=== PATIENT | female | born 1970 | race Caucasian/White ===

== ENCOUNTER 2017-09-08 17:24 | Emergency (ER) | payer OTHER ==
[~2017-09-08] VITALS: Ht 157.5 cm; Wt 72.6 kg
[~2017-09-08 17:24] MED LIST: AMOXICILLIN 50500 MG PO; ANAPROX DS550 MG PO; APAP W/CODEINE1 TA2 PO; FLEXERIL PO; HORMONE PILL; HYDROCODONE-AP1 EAC6 PO; HYDROCODONE-APA1 TA1 PO; IBUPROFEN 800800 M1 PO; LORTAB 5-325 M1 EACH PO; NAPROSYN500 MG PO; NORCO 5-325 TA1 EACH PO; OMEPRAZOLE20 M1 PO; PREDNISONE50 MG PO; PROGESTERONE100 MG PO; TESSALON PERLE100 MG PO; TRAMADOL 50 MG50 MG PO; VITAMIN D1000 UNI1 PO; XANAX 0.25 MG0.25 MG PO; ZANTAC 150MG T150 M1 PO; ZOFRAN ODT4 MG PO
[2017-09-08] MEDS ORDERED: XANAX 0.25 MG0.25 MG PO (17:28)
[2017-09-08 17:55] LABS: ABSOLUTE BASOPHILS 0.1 thou/uL (0.0-0.2); ABSOLUTE EOSINOPHILS 0.5 thou/uL (0.0-0.7); ABSOLUTE LYMPHOCYTES 3.7 thou/uL (0.8-5.3); ABSOLUTE MONOCYTES 0.6 thou/uL (0.0-1.2); ABSOLUTE NEUTROPHILS 5.8 thou/uL (1.6-8.1); BASOPHILS 0.7 %; EOSINOPHILS 4.4 %; HEMATOCRIT 39.3 % (37.0-47.0); HEMOGLOBIN 13.5 gm/dL (12.0-15.0); LYMPHOCYTES 34.9 %; MCH 30.1 pg (26.0-34.0); MCHC 34.3 g/dL (28.0-37.0); MCV 87.8 fL (80.0-100.0); MONOCYTES 5.6 %; MPV 9.5 fl. (7.2-11.1); NUCLEATED RBCS 0 /100WBC; PLATELET COUNT* 235 thou/uL (150-400); POLYS 54.4 %; RBC 4.48 mil/uL (4.20-5.00); RDW-CV 12.9 % (10.5-14.5); WBC 10.7 thou/uL (4.0-11.0)
[2017-09-08 18:06] LABS: ANION GAP 8 mmol/L (7-16); BUN 15 mg/dL (7-18); CALCIUM 8.8 mg/dL (8.5-10.1); CHLORIDE 104 mmol/L (98-107); CO2 29 mmol/L (21-32); CREATININE 0.7 mg/dL (0.6-1.3); GLUCOSE 109 mg/dL (70-99); POTASSIUM 3.5 mmol/L (3.5-5.1); SODIUM 141 mmol/L (136-145)
[2017-09-08 18:17] LABS: ALBUMIN 3.7 g/dL (3.4-5.0); ALKALINE PHOSPHATASE 78 U/L (46-116); LIPASE 140 U/L (73-393); NT-PRO BRAIN NAT PEPTIDE 22 pg/mL (<300); SGOT 21 U/L (15-37); SGPT 44 U/L (30-65); TOTAL BILIRUBIN 0.4 mg/dL (<0.1-1.0); TOTAL PROTEIN 7.3 g/dL (6.4-8.2); TROPONIN-I LEVEL <0.06 ng/mL (<0.06)
[2017-09-08 18:27] VITALS: BP 142/96
--- NOTE | 2017-09-09 16:33 | EKG ---
[place] [address] ELECTROCARDIOGRAM REPORT Name: FAUSTO RAMSAY Room: [facility]#: [id number] Admission: 09/08/17 Attend Phys: Discharge: 09/08/17 Date of : 72 Report #: [id number] THIS REPORT FOR: //name// [facility] ED Test Date: 2017-09-08 Test Time: 17:28:14 Pat Name: FAUSTO RAMSAY Department: Room: Gender: F Nursing Assistants Teacher: Maria L DEL ANGEL : 1970 Requested By: Wilmar Hu Order Number: [id number] MD: Mitesh Crow Measurements Intervals [place] Rate: 88 P: 15 [place]: 160 QRS: 38 QRSD: 94 T: 52 QT: 386 QTc: 467 Interpretive Statements Sinus rhythm Compared to ECG 12/17/2016 15:01:21 No significant changes Electronically Signed On 09-09-2017 16:33:49 STATISTICAL DEVELOPER by Mitesh Crow [email or web address] <ELECTRONICALLY SIGNED> By: Antonino Crow MD, [facility] 09/09/17 1633 D: [id number] 27 Antonino Crow MD, [facility] /EPI
== END 2017-09-08 18:27 | disposition home or self-care (01) ==
LOC: M.ERS 17:24
PROVIDERS: Emergency Medicine
DX: R07.89 Other chest pain (principal); F17.210 Nicotine dependence, cigarettes, uncomplicated; Z90.49 Acquired absence of other specified parts of digestive tract; Z98.890 Other specified postprocedural states

== ENCOUNTER 2017-11-01 15:44 | Emergency (ER) | payer OTHER ==
[~2017-11-01] VITALS: Ht 157.5 cm; Wt 79.4 kg
[2017-11-01 16:14] LABS: ABSOLUTE BASOPHILS 0.1 thou/uL (0.0-0.2); ABSOLUTE EOSINOPHILS 0.6 thou/uL (0.0-0.7); ABSOLUTE LYMPHOCYTES 3.7 thou/uL (0.8-5.3); ABSOLUTE MONOCYTES 0.7 thou/uL (0.0-1.2); ABSOLUTE NEUTROPHILS 5.2 thou/uL (1.6-8.1); EOSINOPHILS 5.4 %; HEMATOCRIT 41.8 % (37.0-47.0); HEMOGLOBIN 14.3 gm/dL (12.0-15.0); MCH 29.9 pg (26.0-34.0); MCHC 34.1 g/dL (28.0-37.0); MCV 87.6 fL (80.0-100.0); MONOCYTES 7.2 %; MPV 9.9 fl. (7.2-11.1); NUCLEATED RBCS 0 /100WBC; PLATELET COUNT* 248 thou/uL (150-400); POLYS 50.4 %; RBC 4.77 mil/uL (4.20-5.00); RDW-CV 13.1 % (10.5-14.5); WBC 10.2 thou/uL (4.0-11.0)
[2017-11-01 16:14] LABS: URINE BILIRUBIN NEGATIVE (Negative); URINE BLOOD NEGATIVE (Negative); URINE CLARITY CLEAR; URINE COLOR YELLOW; URINE GLUCOSE-RANDOM NEGATIVE (Negative); URINE KETONES NEGATIVE (Negative); URINE LEUKOCYTES-REFLEX NEGATIVE (Negative); URINE NITRITE-REFLEX NEGATIVE (Negative); URINE PROTEIN NEGATIVE (Negative); URINE SPECIFIC GRAVITY >= 1.030 (1.005-1.030); URINE UROBILINOGEN 0.2 E.U./dl (0.2-1.0)
[2017-11-01 16:19] LABS: ANION GAP 6 mmol/L (7-16); BUN 13 mg/dL (7-18); CALCIUM 9.9 mg/dL (8.5-10.1); CHLORIDE 105 mmol/L (98-107); CO2 30 mmol/L (21-32); CREATININE 0.8 mg/dL (0.6-1.3); GLUCOSE 98 mg/dL (70-99); POTASSIUM 3.7 mmol/L (3.5-5.1); SODIUM 141 mmol/L (136-145)
[2017-11-01 16:26] LABS: ALBUMIN 4.1 g/dL (3.4-5.0); ALKALINE PHOSPHATASE 91 U/L (46-116); LIPASE 131 U/L (73-393); SGOT 26 U/L (15-37); SGPT 53 U/L (30-65); TOTAL BILIRUBIN 0.4 mg/dL (<0.1-1.0); TOTAL PROTEIN 7.7 g/dL (6.4-8.2); TROPONIN-I LEVEL <0.06 ng/mL (<0.06)
[2017-11-01] MEDS ORDERED: FLEXERIL PO (17:04)
[2017-11-01 17:10] VITALS: BP 153/93
--- NOTE | 2017-11-02 16:32 | EKG ---
[place] [address] ELECTROCARDIOGRAM REPORT Name: FAUSTO RAMSAY Room: [facility]#: [id number] Admission: 11/01/17 Attend Phys: Discharge: 11/01/17 Date of : 72 Report #: [id number] THIS REPORT FOR: //name// [facility] ED Test Date: 2017-11-01 Test Time: 16:12:59 Pat Name: FAUSTO RAMSAY Department: Room: Gender: F Nuclear Medicine Specialist: Maria L DEL ANGEL : 1970 Requested By: Zo Melo Order Number: [id number] MD: Joaquim Gann Measurements Intervals [place] Rate: 81 P: 2 IA: 139 QRS: 32 QRSD: 91 T: 36 QT: 390 QTc: 453 Interpretive Statements Sinus rhythm Compared to ECG 09/08/2017 17:28:14 No significant changes Electronically Signed On 11-02-2017 16:32:06 CDT by Joaquim Gann [email or web address] <ELECTRONICALLY SIGNED> By: Joaquim Gann MD, [facility] 11/02/17 1632 1612 11 Joaquim Gann MD, [facility]ACC /EPI
== END 2017-11-01 17:11 | disposition home or self-care (01) ==
LOC: M.ERS 15:44
PROVIDERS: Nurse Practitioner
DX: S00.83XA Contusion of other part of head, initial encounter (principal); F17.210 Nicotine dependence, cigarettes, uncomplicated; Z90.49 Acquired absence of other specified parts of digestive tract; Z98.890 Other specified postprocedural states; Z90.721 Acquired absence of ovaries, unilateral; Z88.8 Allergy status to other drugs, medicaments and biological substances; X58.XXXA Exposure to other specified factors, initial encounter; Y93.89 Activity, other specified; Y92.89 Other specified places as the place of occurrence of the external cause; Y99.8 Other external cause status

== ENCOUNTER → 2018-09-10 | Outpatient (CLI) | payer OTHER ==
[~2018-09-10] MED LIST changes: +BENTYL 10 MG CA10 M1
== END ==
LOC: M.RAD 16:21
DX: R07.81 Pleurodynia (principal)

== ENCOUNTER 2018-09-11 18:40 | Emergency (ER) | payer OTHER ==
[~2018-09-11] VITALS: Ht 157.5 cm; Wt 79.4 kg
[~2018-09-11 18:40] MED LIST changes: -BENTYL 10 MG CA10 M1
[2018-09-11] MEDS ORDERED: BENTYL 10 MG CA10 M1 (19:27)
[2018-09-11 20:19] LABS: ABSOLUTE BASOPHILS 0.1 thou/uL (0.0-0.2); ABSOLUTE EOSINOPHILS 0.4 thou/uL (0.0-0.7); ABSOLUTE LYMPHOCYTES 3.4 thou/uL (0.8-5.3); ABSOLUTE MONOCYTES 0.6 thou/uL (0.0-1.2); ABSOLUTE NEUTROPHILS 6.6 thou/uL (1.6-8.1); BASOPHILS 0.8 %; EOSINOPHILS 3.9 %; HEMATOCRIT 43.5 % (37.0-47.0); HEMOGLOBIN 14.9 gm/dL (12.0-15.0); LYMPHOCYTES 30.4 %; MCHC 34.1 g/dL (28.0-37.0); MCV 87.9 fL (80.0-100.0); MONOCYTES 5.5 %; MPV 9.6 fl. (7.2-11.1); NUCLEATED RBCS 0 /100WBC; PLATELET COUNT* 274 thou/uL (150-400); POLYS 59.4 %; RBC 4.95 mil/uL (4.20-5.00); RDW-CV 12.9 % (10.5-14.5); WBC 11.2 thou/uL (4.0-11.0)
[2018-09-11 20:23] LABS: URINE BILIRUBIN NEGATIVE (Negative); URINE BLOOD NEGATIVE (Negative); URINE CLARITY CLEAR; URINE COLOR YELLOW; URINE GLUCOSE-RANDOM NEGATIVE (Negative); URINE KETONES NEGATIVE (Negative); URINE LEUKOCYTES-REFLEX NEGATIVE (Negative); URINE NITRITE-REFLEX NEGATIVE (Negative); URINE PROTEIN NEGATIVE (Negative); URINE SPECIFIC GRAVITY 1.025 (1.005-1.030); URINE UROBILINOGEN 0.2 E.U./dl (0.2-1.0)
[2018-09-11 20:27] LABS: ANION GAP 8 mmol/L (7-16); BUN 11 mg/dL (7-18); CALCIUM 9.8 mg/dL (8.5-10.1); CHLORIDE 101 mmol/L (98-107); CO2 29 mmol/L (21-32); CREATININE 0.8 mg/dL (0.6-1.3); GLUCOSE 90 mg/dL (70-99); POTASSIUM 3.4 mmol/L (3.5-5.1); SODIUM 138 mmol/L (136-145)
[2018-09-11 20:28] LABS: PROTIME 10.3 Seconds (9.20-11.50)
[2018-09-11 20:35] LABS: ALBUMIN 4.2 g/dL (3.4-5.0); ALKALINE PHOSPHATASE 96 U/L (46-116); LIPASE 100 U/L (73-393); NT-PRO BRAIN NAT PEPTIDE 27 pg/mL (<300); SGOT 28 U/L (15-37); SGPT 60 U/L (30-65); TOTAL BILIRUBIN 0.6 mg/dL (<0.1-1.0); TOTAL PROTEIN 8.3 g/dL (6.4-8.2); TROPONIN-I LEVEL <0.06 ng/mL (<0.06)
[2018-09-11] MEDS ORDERED: TRAMADOL 50 MG50 MG PO (21:00)
[2018-09-11 21:09] VITALS: BP 139/97
--- NOTE | 2018-09-12 13:06 | EKG ---
[place] [address] ELECTROCARDIOGRAM REPORT Name: FAUSTO RAMSAY Room: [facility]#: [id number] Admission: 09/11/18 Attend Phys: Discharge: 09/11/18 Date of : 72 Report #: [id number] THIS REPORT FOR: //name// [facility] ED Test Date: 2018-09-11 Test Time: 19:31:24 Pat Name: FAUSTO RAMSAY Department: Room: Gender: F Instrumentation Technologist: PETRA : 1970 Requested By: Florencia Frank Order Number: [id number] MD: Adarsh Scott Measurements Intervals [place] Rate: 83 P: -1 AK: 145 QRS: 17 QRSD: 89 T: 35 QT: 393 QTc: 462 Interpretive Statements Sinus rhythm Left atrial enlargement Probable left ventricular hypertrophy Compared to ECG 11/01/2017 16:12:59 no change Electronically Signed On 09-12-2018 13:05:54 MINE MANAGER by Adarsh Scott [email or web address] <ELECTRONICALLY SIGNED> By: Adarsh Scott MD, [facility] 09/12/18 1305 30 30 Adarsh Scott MD, FACC /EPI
== END 2018-09-11 21:09 | disposition home or self-care (01) ==
LOC: M.ERS 18:40
PROVIDERS: Emergency Medicine
DX: R07.89 Other chest pain (principal); F17.210 Nicotine dependence, cigarettes, uncomplicated; Z90.49 Acquired absence of other specified parts of digestive tract; Z98.890 Other specified postprocedural states; Z90.721 Acquired absence of ovaries, unilateral; Z88.8 Allergy status to other drugs, medicaments and biological substances

== ENCOUNTER → 2018-09-24 | Outpatient (CLI) | payer OTHER ==
[~2018-09-24] MED LIST changes: +BENTYL 10 MG CA10 M1
== END ==
LOC: M.ULTRA 11:25
DX: R10.812 Left upper quadrant abdominal tenderness (principal); R20.8 Other disturbances of skin sensation

== ENCOUNTER 2018-12-25 17:37 | Emergency (ER) | payer OTHER ==
[~2018-12-25] VITALS: Ht 157.5 cm; Wt 80.3 kg
[2018-12-25 19:18] LABS: ABSOLUTE BASOPHILS 0.1 thou/uL (0.0-0.2); ABSOLUTE EOSINOPHILS 0.5 thou/uL (0.0-0.7); ABSOLUTE LYMPHOCYTES 3.1 thou/uL (0.8-5.3); ABSOLUTE MONOCYTES 0.7 thou/uL (0.0-1.2); ABSOLUTE NEUTROPHILS 5.9 thou/uL (1.6-8.1); BASOPHILS 0.6 %; EOSINOPHILS 4.9 %; HEMATOCRIT 42.1 % (37.0-47.0); HEMOGLOBIN 14.5 gm/dL (12.0-15.0); LYMPHOCYTES 30.2 %; MCHC 34.4 g/dL (28.0-37.0); MCV 87.2 fL (80.0-100.0); MONOCYTES 6.5 %; MPV 9.9 fl. (7.2-11.1); NUCLEATED RBCS 0 /100WBC; PLATELET COUNT* 246 thou/uL (150-400); POLYS 57.8 %; RBC 4.83 mil/uL (4.20-5.00); RDW-CV 12.5 % (10.5-14.5); WBC 10.2 thou/uL (4.0-11.0)
[2018-12-25 19:26] LABS: ANION GAP 9 mmol/L (7-16); BUN 10 mg/dL (7-18); CALCIUM 9.3 mg/dL (8.5-10.1); CHLORIDE 105 mmol/L (98-107); CO2 28 mmol/L (21-32); CREATININE 0.8 mg/dL (0.6-1.3); GLUCOSE 95 mg/dL (70-99); POTASSIUM 3.7 mmol/L (3.5-5.1); SODIUM 142 mmol/L (136-145)
[2018-12-25 19:36] LABS: ALBUMIN 3.9 g/dL (3.4-5.0); ALKALINE PHOSPHATASE 85 U/L (46-116); MAGNESIUM 2.1 mg/dL (1.8-2.4); SGOT 21 U/L (15-37); SGPT 50 U/L (30-65); TOTAL BILIRUBIN 0.4 mg/dL (<0.1-1.0); TOTAL PROTEIN 7.6 g/dL (6.4-8.2); TROPONIN-I LEVEL <0.06 ng/mL (<0.06)
[2018-12-25 20:43] LABS: URINE BILIRUBIN NEGATIVE (Negative); URINE BLOOD NEGATIVE (Negative); URINE CLARITY CLEAR; URINE COLOR YELLOW; URINE GLUCOSE-RANDOM NEGATIVE (Negative); URINE KETONES NEGATIVE (Negative); URINE LEUKOCYTES-REFLEX NEGATIVE (Negative); URINE NITRITE-REFLEX NEGATIVE (Negative); URINE PROTEIN NEGATIVE (Negative); URINE UROBILINOGEN 0.2 E.U./dl (0.2-1.0)
[2018-12-25 20:50] LABS: AMP/METHAMP Negative (Negative); BARBITURATES Negative (Negative); BENZODIAZEPINES Negative (Negative); COCAINE Negative (Negative); METHADONE Negative (Negative); OPIATES Negative (Negative); PCP Negative (Negative); THC Negative (Negative)
[2018-12-25 21:05] VITALS: BP 150/96
--- NOTE | 2018-12-26 11:26 | EKG ---
[place] [address] ELECTROCARDIOGRAM REPORT Name: FAUSTO RAMSAY Room: [facility]#: [id number] Admission: 12/25/18 Attend Phys: Discharge: 12/25/18 Date of : 72 Report #: [id number] THIS REPORT FOR: //name// [facility] ED Test Date: 2018-12-25 Test Time: 19:12:19 Pat Name: FAUSTO RAMSAY Department: Room: Gender: F Airworthiness Inspector: DARRELL : 1970 Requested By: Shelly Jarrett Order Number: [id number] MD: Adarsh Scott Measurements Intervals [place] Rate: 84 P: 12 NV: 170 QRS: 28 QRSD: 90 T: 38 QT: 401 QTc: 475 Interpretive Statements Sinus rhythm Compared to ECG 09/11/2018 19:31:24 no change Electronically Signed On 12-26-2018 11:26:29 CDT by Adarsh Scott [email or web address] <ELECTRONICALLY SIGNED> By: Adarsh Scott MD, [facility] 12/26/18 1126 11 11 Adarsh Scott MD, FACC /EPI
== END 2018-12-25 21:05 | disposition home or self-care (01) ==
LOC: M.ERS 17:37
PROVIDERS: Nurse Practitioner Family
DX: M79.662 Pain in left lower leg (principal); M79.604 Pain in right leg; R03.0 Elevated blood-pressure reading, without diagnosis of hypertension; G51.32 Clonic hemifacial spasm, left; F17.210 Nicotine dependence, cigarettes, uncomplicated; Z90.49 Acquired absence of other specified parts of digestive tract; Z98.890 Other specified postprocedural states; Z90.721 Acquired absence of ovaries, unilateral; Z86.718 Personal history of other venous thrombosis and embolism

== ENCOUNTER 2019-04-30 20:53 | Emergency (ER) | payer OTHER ==
[~2019-04-30] VITALS: Ht 157.5 cm; Wt 68.0 kg
[2019-04-30] MEDS ORDERED: TESSALON PERLE100 MG PO (21:27)
[2019-04-30] MEDS ORDERED: ZPAK PO (21:27)
[2019-04-30] MEDS ORDERED: PROMETHAZINE V120 ML PO (21:27)
[2019-04-30] MEDS ORDERED: PROAIR HFA8.5 GM INH (21:40)
[2019-04-30] MEDS ORDERED: MEDROLDOSEPACK PO (22:11)
[2019-04-30 22:42] VITALS: BP 128/93
== END 2019-04-30 22:48 | disposition home or self-care (01) ==
LOC: M.ERS 20:53
DX: J20.9 Acute bronchitis, unspecified (principal); F17.210 Nicotine dependence, cigarettes, uncomplicated; Z90.49 Acquired absence of other specified parts of digestive tract; Z90.721 Acquired absence of ovaries, unilateral; Z98.890 Other specified postprocedural states; Z91.048 Other nonmedicinal substance allergy status

== ENCOUNTER 2020-02-12 23:53 | Emergency (ER) | payer OTHER | END 2020-02-13 03:08 | disposition home or self-care (01) | LOC: M.ERS 23:53 | DX: R07.89 Other chest pain (principal); F17.210 Nicotine dependence, cigarettes, uncomplicated; Z91.012 Allergy to eggs; Z90.49 Acquired absence of other specified parts of digestive tract; Z98.890 Other specified postprocedural states ==

== ENCOUNTER 2020-03-16 21:35 | Emergency (ER) | payer OTHER ==
[~2020-03-16] VITALS: Ht 157.5 cm; Wt 72.6 kg
[~2020-03-16 21:35] MED LIST changes: +MEDROLDOSEPACK PO; +PROAIR HFA8.5 GM INH; +PROMETHAZINE V120 ML PO; +PROTONIX40 M1 PO; +ZPAK PO
[2020-03-16 22:02] LABS: ABSOLUTE BASOPHILS 0.1 thou/uL (0.0-0.2); ABSOLUTE EOSINOPHILS 0.6 thou/uL (0.0-0.7); ABSOLUTE LYMPHOCYTES 4.8 thou/uL (0.8-5.3); ABSOLUTE MONOCYTES 0.8 thou/uL (0.0-1.2); ABSOLUTE NEUTROPHILS 5.8 thou/uL (1.6-8.1); BASOPHILS 0.7 %; EOSINOPHILS 5.2 %; HEMOGLOBIN 14.5 gm/dL (12.0-15.0); LYMPHOCYTES 39.5 %; MCHC 35.5 g/dL (28.0-37.0); MCV 87.5 fL (80.0-100.0); MONOCYTES 6.4 %; MPV 9.5 fl. (7.2-11.1); NUCLEATED RBCS 0 /100WBC; PLATELET COUNT* 277 thou/uL (150-400); POLYS 48.2 %; RBC 4.69 mil/uL (4.20-5.00); RDW-CV 12.6 % (10.5-14.5)
[2020-03-16 22:12] LABS: CALCIUM 9.3 mg/dL (8.5-10.1); CREATININE 0.9 mg/dL (0.6-1.3); POTASSIUM 3.1 mmol/L (3.5-5.1)
[2020-03-16 22:17] LABS: TOTAL BILIRUBIN 0.4 mg/dL (<0.1-1.0); TOTAL PROTEIN 7.7 g/dL (6.4-8.2)
[2020-03-16] MEDS ORDERED: OMEPRAZOLE 20 M20 M1 PO (23:13)
[2020-03-16] MEDS ORDERED: CARAFATE 1 GM TA1 GM PO (23:13)
[2020-03-16] MEDS ORDERED: CYCLOBENZAPRINE5 MG PO (23:22)
[2020-03-16] MEDS ORDERED: MEDROLDOSEPACK PO (23:22)
[2020-03-17 00:24] VITALS: BP 126/85
--- NOTE | 2020-03-17 17:23 | EKG ---
[place] [address] ELECTROCARDIOGRAM REPORT Name: FAUSTO RAMSAY Room: [facility]#: [id number] Admission: 03/16/20 Attend Phys: Discharge: 03/17/20 Date of : 72 Date of Service: 03/16/202139 Report #: [id number] THIS REPORT FOR: //name// [facility] ED Test Date: 2020-03-16 Test Time: 21:40:35 Pat Name: FAUSTO RAMSAY Department: Room: Gender: F Pathology Technician: ROSAURA : 1970 Requested By: Eboni Culp Order Number: [id number] MD: Mohan Zurita Measurements Intervals [place] Rate: 85 P: 17 VT: 147 QRS: 49 QRSD: 94 T: 67 QT: 389 QTc: 463 Interpretive Statements Sinus rhythm Abnormal inferior Q waves Compared to ECG 02/12/2020 23:57:27 Inferior Q waves now present Q waves now present Sinus tachycardia no longer present Electronically Signed On 03-17-2020 17:22:54 CDT by Mohan Zurita [email or web address] <ELECTRONICALLY SIGNED> By: Mohan Zurita MD, [facility] 03/17/20 1722 2140 39 Mohan Zurita MD, [facility] /EPI
== END 2020-03-17 00:27 | disposition home or self-care (01) ==
LOC: M.ERS 21:35
PROVIDERS: Personal Emergency Response Attendant
DX: R07.89 Other chest pain (principal); F17.210 Nicotine dependence, cigarettes, uncomplicated; Z90.49 Acquired absence of other specified parts of digestive tract; Z98.890 Other specified postprocedural states; Z90.721 Acquired absence of ovaries, unilateral

== ENCOUNTER 2020-05-11 14:32 | Emergency (ER) | payer OTHER ==
[~2020-05-11] VITALS: Ht 157.5 cm; Wt 70.3 kg
[~2020-05-11 14:32] MED LIST changes: +CARAFATE 1 GM TA1 GM PO; +CYCLOBENZAPRINE5 MG PO; +OMEPRAZOLE 20 M20 M1 PO
[2020-05-11 16:47] LABS: URINE BILIRUBIN NEGATIVE (Negative); URINE BLOOD NEGATIVE (Negative); URINE CLARITY CLEAR; URINE COLOR YELLOW; URINE GLUCOSE-RANDOM NEGATIVE (Negative); URINE KETONES TRACE (Negative); URINE LEUKOCYTES NEGATIVE (Negative); URINE NITRITE NEGATIVE (Negative); URINE PROTEIN NEGATIVE (Negative); URINE SPECIFIC GRAVITY >= 1.030 (1.005-1.030); URINE UROBILINOGEN 0.2 E.U./dl (0.2-1.0)
[2020-05-11 16:50] LABS: ABSOLUTE BASOPHILS 0.1 thou/uL (0.0-0.2); ABSOLUTE EOSINOPHILS 0.3 thou/uL (0.0-0.7); ABSOLUTE LYMPHOCYTES 3.1 thou/uL (0.8-5.3); ABSOLUTE MONOCYTES 0.6 thou/uL (0.0-1.2); ABSOLUTE NEUTROPHILS 4.9 thou/uL (1.6-8.1); BASOPHILS 0.7 %; EOSINOPHILS 3.1 %; HEMATOCRIT 42.7 % (37.0-47.0); LYMPHOCYTES 34.9 %; MCH 30.2 pg (26.0-34.0); MCHC 35.1 g/dL (28.0-37.0); MCV 86.1 fL (80.0-100.0); MONOCYTES 6.3 %; MPV 8.8 fl. (7.2-11.1); NUCLEATED RBCS 0 /100WBC; PLATELET COUNT* 258 thou/uL (150-400); RBC 4.96 mil/uL (4.20-5.00); RDW-CV 12.8 % (10.5-14.5); WBC 8.9 thou/uL (4.0-11.0)
[2020-05-11 16:59] LABS: CALCIUM 9.3 mg/dL (8.5-10.1); CREATININE 0.8 mg/dL (0.6-1.3); POTASSIUM 3.5 mmol/L (3.5-5.1)
[2020-05-11 17:05] LABS: ALBUMIN 4.1 g/dL (3.4-5.0); TOTAL BILIRUBIN 0.7 mg/dL (<0.1-1.0); TOTAL PROTEIN 7.9 g/dL (6.4-8.2)
[2020-05-11] MEDS ORDERED: ZOFRAN ODT4 MG PO (17:40)
[2020-05-11] MEDS ORDERED: BENTYL 10 MG CA10 MG PO (17:40)
[2020-05-11 17:59] VITALS: BP 147/92
== END 2020-05-11 18:01 | disposition home or self-care (01) ==
LOC: M.ERS 14:32
PROVIDERS: Physician Assistant
DX: R11.2 Nausea with vomiting, unspecified (principal); R07.89 Other chest pain; E86.0 Dehydration; R53.1 Weakness; R19.7 Diarrhea, unspecified

== ENCOUNTER 2020-05-28 12:06 | Emergency (ER) | payer OTHER ==
[~2020-05-28] VITALS: Ht 157.5 cm; Wt 70.3 kg
[~2020-05-28 12:06] MED LIST changes: +BENTYL 10 MG CA10 MG PO
[2020-05-28] MEDS ORDERED: ORPHENADRINE C100 M2 PO (12:13)
[2020-05-28] MEDS ORDERED: MELOXICAM15 MG PO (12:14)
[2020-05-28 13:22] LABS: ABSOLUTE BASOPHILS 0.1 thou/uL (0.0-0.2); ABSOLUTE EOSINOPHILS 0.3 thou/uL (0.0-0.7); ABSOLUTE MONOCYTES 0.9 thou/uL (0.0-1.2); BASOPHILS 0.5 %; EOSINOPHILS 2.5 %; HEMATOCRIT 44.6 % (37.0-47.0); HEMOGLOBIN 15.3 gm/dL (12.0-15.0); LYMPHOCYTES 24.2 %; MCHC 34.3 g/dL (28.0-37.0); MCV 87.6 fL (80.0-100.0); MONOCYTES 7.2 %; MPV 9.1 fl. (7.2-11.1); NUCLEATED RBCS 0 /100WBC; PLATELET COUNT* 274 thou/uL (150-400); POLYS 65.6 %; RBC 5.09 mil/uL (4.20-5.00); RDW-CV 12.8 % (10.5-14.5); WBC 12.2 thou/uL (4.0-11.0)
[2020-05-28 13:30] LABS: CALCIUM 9.6 mg/dL (8.5-10.1); CREATININE 0.9 mg/dL (0.6-1.3); POTASSIUM 3.2 mmol/L (3.5-5.1)
[2020-05-28 13:34] LABS: ALBUMIN 4.3 g/dL (3.4-5.0); TOTAL BILIRUBIN 0.7 mg/dL (<0.1-1.0); TOTAL PROTEIN 8.4 g/dL (6.4-8.2)
[2020-05-28 14:08] LABS: URINE BILIRUBIN NEGATIVE (Negative); URINE BLOOD NEGATIVE (Negative); URINE CLARITY CLEAR; URINE COLOR YELLOW; URINE GLUCOSE-RANDOM NEGATIVE (Negative); URINE KETONES NEGATIVE (Negative); URINE LEUKOCYTES-REFLEX NEGATIVE (Negative); URINE NITRITE-REFLEX NEGATIVE (Negative); URINE PROTEIN NEGATIVE (Negative); URINE SPECIFIC GRAVITY <= 1.005 (1.005-1.030); URINE UROBILINOGEN 0.2 E.U./dl (0.2-1.0)
[2020-05-28 14:48] VITALS: BP 137/88
[2020-05-28] MEDS ORDERED: ONDANSETRON ODT4 MG PO (14:48)
[2020-05-28] MEDS ORDERED: VISTARIL 25 MG25 M1 PO (14:59)
--- NOTE | 2020-05-28 17:10 | EKG ---
[place] [address] ELECTROCARDIOGRAM REPORT Name: FAUSTO RAMSAY Room: [facility]#: [id number] Admission: 05/28/20 Attend Phys: Discharge: 05/28/20 Date of : 72 Date of Service: 05/28/20 1219 Report #: [id number] THIS REPORT FOR: //name// [facility] ED Test Date: 2020-05-28 Test Time: 12:19:49 Pat Name: FAUSTO RAMSAY Department: Room: Gender: F Camp Housekeeper: Marisa : 1970 Requested By: Ayleen Schmitz Order Number: [id number] MD: Joaquim Gann Measurements Intervals [place] Rate: 97 P: 20 CT: 168 QRS: 46 QRSD: 90 T: 65 QT: 368 QTc: 468 Interpretive Statements Sinus rhythm Compared to ECG 03/16/2020 21:40:35 Inferior Q waves no longer present Q waves no longer present Electronically Signed On 05-28-2020 17:10:11 CDT by Joaquim Gann [email or web address] <ELECTRONICALLY SIGNED> By: Joaquim Gann MD, FACC 05/28/20 1710 1219 1219 Joaquim Gann MD, FACC /EPI
== END 2020-05-28 14:48 | disposition home or self-care (01) ==
LOC: M.ERS 12:06
PROVIDERS: Physician Assistant
DX: R00.2 Palpitations (principal); Z20.828 Contact with and (suspected) exposure to other viral communicable diseases; F41.9 Anxiety disorder, unspecified; R11.10 Vomiting, unspecified; F17.210 Nicotine dependence, cigarettes, uncomplicated; Z98.890 Other specified postprocedural states; Z79.899 Other long term (current) drug therapy; Z90.49 Acquired absence of other specified parts of digestive tract

== ENCOUNTER 2020-08-21 09:27 | Emergency (ER) | payer OTHER ==
[~2020-08-21] VITALS: Ht 157.5 cm; Wt 72.6 kg
[~2020-08-21 09:27] MED LIST changes: +MELOXICAM15 MG PO; +ONDANSETRON ODT4 MG PO; +ORPHENADRINE C100 M2 PO; +VISTARIL 25 MG25 M1 PO
[2020-08-21 09:46] LABS: URINE BILIRUBIN NEGATIVE (Negative); URINE BLOOD NEGATIVE (Negative); URINE CLARITY CLEAR; URINE COLOR YELLOW; URINE GLUCOSE-RANDOM NEGATIVE (Negative); URINE KETONES NEGATIVE (Negative); URINE LEUKOCYTES-REFLEX NEGATIVE (Negative); URINE NITRITE-REFLEX NEGATIVE (Negative); URINE PROTEIN NEGATIVE (Negative); URINE SPECIFIC GRAVITY 1.025 (1.005-1.030); URINE UROBILINOGEN 0.2 E.U./dl (0.2-1.0)
[2020-08-21 10:04] LABS: ABSOLUTE BASOPHILS 0.1 thou/uL (0.0-0.2); ABSOLUTE EOSINOPHILS 0.6 thou/uL (0.0-0.7); ABSOLUTE LYMPHOCYTES 2.4 thou/uL (0.8-5.3); ABSOLUTE MONOCYTES 0.5 thou/uL (0.0-1.2); ABSOLUTE NEUTROPHILS 4.1 thou/uL (1.6-8.1); BASOPHILS 0.8 %; EOSINOPHILS 7.2 %; HEMATOCRIT 43.8 % (37.0-47.0); HEMOGLOBIN 15.2 gm/dL (12.0-15.0); LYMPHOCYTES 31.7 %; MCH 30.2 pg (26.0-34.0); MCHC 34.6 g/dL (28.0-37.0); MCV 87.4 fL (80.0-100.0); MONOCYTES 6.6 %; MPV 8.9 fl. (7.2-11.1); NUCLEATED RBCS 0 /100WBC; PLATELET COUNT* 254 thou/uL (150-400); POLYS 53.7 %; RBC 5.01 mil/uL (4.20-5.00); RDW-CV 12.6 % (10.5-14.5); WBC 7.6 thou/uL (4.0-11.0)
[2020-08-21 10:12] LABS: CALCIUM 9.9 mg/dL (8.5-10.1); CREATININE 0.7 mg/dL (0.6-1.3); POTASSIUM 4.2 mmol/L (3.5-5.1)
[2020-08-21 10:17] LABS: ALBUMIN 4.3 g/dL (3.4-5.0); TOTAL BILIRUBIN 0.4 mg/dL (<0.1-1.0); TOTAL PROTEIN 7.9 g/dL (6.4-8.2)
[2020-08-21 11:45] VITALS: BP 135/93
== END 2020-08-21 11:45 | disposition home or self-care (01) ==
LOC: M.ERS 09:27
PROVIDERS: Family Medicine
DX: R10.11 Right upper quadrant pain (principal); F17.210 Nicotine dependence, cigarettes, uncomplicated; Z90.49 Acquired absence of other specified parts of digestive tract; Z79.899 Other long term (current) drug therapy; Z91.048 Other nonmedicinal substance allergy status

== ENCOUNTER 2020-10-09 05:24 | Emergency (ER) | payer OTHER ==
[~2020-10-09] VITALS: Ht 157.5 cm; Wt 70.3 kg
[2020-10-09 05:57] LABS: ABSOLUTE BASOPHILS 0.1 thou/uL (0.0-0.2); ABSOLUTE EOSINOPHILS 0.4 thou/uL (0.0-0.7); ABSOLUTE LYMPHOCYTES 4.6 thou/uL (0.8-5.3); ABSOLUTE MONOCYTES 0.7 thou/uL (0.0-1.2); BASOPHILS 0.9 %; EOSINOPHILS 4.2 %; HEMATOCRIT 43.1 % (37.0-47.0); HEMOGLOBIN 14.8 gm/dL (12.0-15.0); LYMPHOCYTES 42.3 %; MCH 29.9 pg (26.0-34.0); MCHC 34.3 g/dL (28.0-37.0); MONOCYTES 6.4 %; MPV 9.4 fl. (7.2-11.1); NUCLEATED RBCS 0 /100WBC; PLATELET COUNT* 271 thou/uL (150-400); POLYS 46.2 %; RBC 4.95 mil/uL (4.20-5.00); RDW-CV 12.8 % (10.5-14.5); WBC 10.8 thou/uL (4.0-11.0)
[2020-10-09 06:03] LABS: CALCIUM 9.8 mg/dL (8.5-10.1); CREATININE 0.8 mg/dL (0.6-1.3); POTASSIUM 3.7 mmol/L (3.5-5.1)
[2020-10-09 06:08] LABS: ALBUMIN 3.9 g/dL (3.4-5.0); TOTAL BILIRUBIN 0.6 mg/dL (<0.1-1.0); TOTAL PROTEIN 7.3 g/dL (6.4-8.2)
[2020-10-09 06:24] LABS: URINE BILIRUBIN NEGATIVE (Negative); URINE BLOOD NEGATIVE (Negative); URINE CLARITY CLEAR; URINE COLOR YELLOW; URINE GLUCOSE-RANDOM NEGATIVE (Negative); URINE KETONES NEGATIVE (Negative); URINE LEUKOCYTES-REFLEX NEGATIVE (Negative); URINE NITRITE-REFLEX NEGATIVE (Negative); URINE PROTEIN NEGATIVE (Negative); URINE SPECIFIC GRAVITY >= 1.030 (1.005-1.030); URINE UROBILINOGEN 0.2 E.U./dl (0.2-1.0)
[2020-10-09 06:52] LABS: AMP/METHAMP Negative (Negative); BARBITURATES Negative (Negative); BENZODIAZEPINES Negative (Negative); COCAINE Negative (Negative); METHADONE Negative (Negative); OPIATES Negative (Negative); PCP Negative (Negative); THC Negative (Negative)
[2020-10-09 08:38] VITALS: BP 143/94
--- NOTE | 2020-10-09 12:42 | EKG ---
[place] [address] ELECTROCARDIOGRAM REPORT Name: FAUSTO RAMSAY Room: [facility]#: [id number] Admission: 10/09/20 Attend Phys: Discharge: 10/09/20 Date of : [birth year] Date of Service: 10/09/20 0529 Report #: [id number] THIS REPORT FOR: //name// [facility] ED Test Date: 2020-10-09 Test Time: 05:29:23 Pat Name: AFUSTO RAMSAY Department: Room: Gender: F International Guest Coordinator: : 1970 Requested By: Eboni Culp Order Number: [id number] MD: Mohan Zurita Measurements Intervals [place] Rate: 98 P: 54 MD: 162 QRS: 39 QRSD: 91 T: 48 QT: 377 QTc: 482 Interpretive Statements Sinus rhythm Probable left atrial enlargement Borderline prolonged QT interval Compared to ECG 05/28/2020 12:19:49 No significant changes Electronically Signed On 10-09-2020 12:41:54 SOLAR ENERGY ENGINEER by Mohan Zurita [email or web address] <ELECTRONICALLY SIGNED> By: Mohan Zurita MD, [facility] 10/09/20 1241 0529 0529 Mohan Zurita MD, [facility] /EPI
== END 2020-10-09 08:38 | disposition home or self-care (01) ==
LOC: M.ERS 05:24
PROVIDERS: Personal Emergency Response Attendant
DX: R07.89 Other chest pain (principal); F17.210 Nicotine dependence, cigarettes, uncomplicated; Z90.49 Acquired absence of other specified parts of digestive tract; Z98.890 Other specified postprocedural states

== ENCOUNTER 2021-01-29 12:27 | Emergency (ER) | payer OTHER ==
[~2021-01-29] VITALS: Ht 157.5 cm; Wt 70.3 kg
[2021-01-29] MEDS ORDERED: ZYRTEC10 M5 PO (12:39)
[2021-01-29 14:32] LABS: ABSOLUTE BASOPHILS 0.1 thou/uL (0.0-0.2); ABSOLUTE EOSINOPHILS 0.4 thou/uL (0.0-0.7); ABSOLUTE LYMPHOCYTES 2.6 thou/uL (0.8-5.3); ABSOLUTE MONOCYTES 0.6 thou/uL (0.0-1.2); ABSOLUTE NEUTROPHILS 5.6 thou/uL (1.6-8.1); EOSINOPHILS 4.6 %; HEMATOCRIT 41.4 % (37.0-47.0); HEMOGLOBIN 14.6 gm/dL (12.0-15.0); LYMPHOCYTES 28.1 %; MCH 30.8 pg (26.0-34.0); MCHC 35.4 g/dL (28.0-37.0); MCV 87.2 fL (80.0-100.0); MONOCYTES 6.8 %; MPV 9.6 fl. (7.2-11.1); NUCLEATED RBCS 0 /100WBC; PLATELET COUNT* 251 thou/uL (150-400); POLYS 59.5 %; RBC 4.75 mil/uL (4.20-5.00); RDW-CV 12.9 % (10.5-14.5); WBC 9.4 thou/uL (4.0-11.0)
[2021-01-29 14:36] LABS: CALCIUM 9.7 mg/dL (8.5-10.1); CREATININE 0.7 mg/dL (0.6-1.3); POTASSIUM 4.1 mmol/L (3.5-5.1)
[2021-01-29 14:43] LABS: MAGNESIUM 2.1 mg/dL (1.8-2.4); TOTAL BILIRUBIN 0.3 mg/dL (<0.1-1.0); TOTAL PROTEIN 7.6 g/dL (6.4-8.2)
[2021-01-29] MEDS ORDERED: HYDROCODON-ACE1 EAC7 PO (15:25)
[2021-01-29] MEDS ORDERED: MECLIZINE HCL25 M1 PO (15:25)
[2021-01-29 16:38] VITALS: BP 135/65
--- NOTE | 2021-01-29 17:19 | EKG ---
[place] [address] ELECTROCARDIOGRAM REPORT Name: FAUSTO RAMSAY Room: [facility]#: [id number] Admission: 01/29/21 Attend Phys: Discharge: 01/29/21 Date of : 72 Date of Service: 01/29/21 1236 Report #: [id number] THIS REPORT FOR: //name// [facility] ED Test Date: 2021-01-29 Test Time: 12:36:45 Pat Name: FAUSTO RAMSAY Department: Room: Gender: F Radar Operator: ASIF : 1970 Requested By: Long Mcfarlane Order Number: [id number] MD: Joaquim Gann Measurements Intervals [place] Rate: 101 P: 31 HI: 155 QRS: 53 QRSD: 93 T: 56 QT: 359 QTc: 466 Interpretive Statements Sinus tachycardia Possible inferior infarct, old Delayed R wave progression compared to ECG 10/09/2020 05:29:23 Myocardial infarct finding now present Sinus rhythm no longer present Electronically Signed On 01-29-2021 17:18:54 CDT by Joaquim Gann [email or web address] <ELECTRONICALLY SIGNED> By: Joaquim Gann MD, [facility]AC 01/29/21 1718 1236 1236 Joaquim Gann MD, [facility] /EPI
== END 2021-01-29 16:39 | disposition home or self-care (01) ==
LOC: M.ERS 12:27
PROVIDERS: Emergency Medicine Emergency Medical Services
DX: R07.89 Other chest pain (principal); H81.11 Benign paroxysmal vertigo, right ear; F17.210 Nicotine dependence, cigarettes, uncomplicated; Z90.49 Acquired absence of other specified parts of digestive tract; Z98.890 Other specified postprocedural states